=== PATIENT | male | born 1990 | race Two or more races ===

== ENCOUNTER 2019-11-10 03:56 | Emergency (ER) | payer SELFPAY ==
[2019-11-10 04:16] VITALS: BP 135/69; BMI 25.5
--- NOTE | 2019-11-10 04:27 | PDOC ---
*Physical Exam - Vital Signs Last Vital Signs Temp Pulse Resp BP Pulse Ox 101.9 F H 110 H 18 135/69 96 11/10/19 04:00 11/10/19 04:00 11/10/19 04:00 11/10/19 04:00 11/10/19 04:00 Medical Decision Making - Medical Decision Making 11/10/19 04:26 Patient seen by the advanced practice provider under my direct supervision. Ancillary testing reviewed as necessary. I agree with plan as outlined by the advanced practice provider. Discharge - Discharge Information Problems reviewed: Yes Clinical Impression/Diagnosis: Influenza-like illness Condition: Fair Disposition: HOME - Follow up/Referral Referrals: Tyler Rodgers MD [Staff Physician] - - Patient Discharge Instructions Additional Instructions: Rest, drink lots of fluids: Teas, water, soups Avoid contact with others until fevers and symptoms resolved Lots of handwashing and good hygiene Continue [id number] medications for symptomatic relief Tylenol or Motrin for fever and pain Continue all of antibiotics until completed Followup with private physician in one week for repeat urinalysis/reevaluation Return to emergency department for worsened symptoms, fevers, dehydration james Barraza muchos lquidos: Ts, agua, sopas Evite el contacto con otros hasta que las fiebres y los sntomas se resuelvan Un montn de lavado de tien y buena higiene Contine los medicamentos sin receta para el alivio sintomtico Tylenol o Motrin para la fiebre y el dolor Continuar todos los antibiticos hasta completarse Seguimiento con mdico privado en grant semana para repetir anlisis de orina / reevaluacin Volver al servicio de urgencias por sntomas empeorados, fiebres, deshidratacin - Post Discharge Activity
[2019-11-10] MEDS ORDERED: IBUPROFEN 600 MG TABLET (FP) PO ONE ×2 (04:30→04:37)
[2019-11-10] MEDS ORDERED: ACETAMINOPHEN 500 MG TABLET (FP) PO ONE (04:33)
--- NOTE | 2019-11-10 04:33 | PDOC ---
History of Present Illness - General Chief Complaint: Sore Throat Stated Complaint: COUGH, SORE THROAT Time Seen by Provider: 11/10/19 04:15 History Source: Patient Exam Limitations: No Limitations - History of Present Illness Initial Comments: 11/10/19 04:31 HISTORY OF PRESENT ILLNESS: 29-year-old male with 3 days of fevers, body aches, chills, cough, sore throat. Patient is unsure of sick contacts but has been taken Tylenol with increased hydration which is helped with the symptoms minimally. Reports his cough is a moist productive cough now has blood streaks in the sputum. No recent travel or sick contacts. PAST MEDICAL HISTORY: Denies past medical history SURGICAL HISTORY: Denies ALLERGIES: No known drug allergies REVIEW OF SYSTEMS General/Constitutional: +fever. Denies weakness, weight change. HEENT: Denies change in vision. Denies ear pain or discharge. +sore throat. Cardiovascular: Denies chest pain or shortness of breath. Respiratory: Moist productive cough. Denies wheezing, or hemoptysis. Gastrointestinal: Denies nausea, vomiting, diarrhea or constipation. Denies rectal bleeding. Genitourinary: Denies dysuria, frequency, or change in urination. Musculoskeletal: +myalgias. Denies neck or back pain. Skin and breasts: Denies rash or easy bruising. Neurologic: Denies headache, vertigo, loss of consciousness, or loss of sensation. Psychiatric: Denies depression or anxiety. Endocrine: Denies increased thirst. Denies abnormal weight change. Hematologic/Lymphatic: Denies anemia, easy bleeding, or history of blood clots. Allergic/Immunologic: Denies hives or skin allergy. Denies latex allergy. PHYSICAL EXAM General Appearance: Well-appearing, appropriately dressed. No apparent distress , no intoxication. HEENT: EOMI, PERRLA, normal voice, TMs retracted bilaterally. No conjunctival pallor. No photophobia, scleral icterus. Oropharynx erythematous without lesions or exudate. Cobblestoning noted in the posterior. No nasal discharge present. Neck: Supple. Trachea midline. No tenderness, rigidity, carotid bruit, stridor , or thyromegaly. Nontender anterior cervical lymphadenopathy present. Respiratory/Chest: Lungs CTAB. No shortness of breath, chest tenderness, respiratory distress, accessory muscle use. No crackles, rales, rhonchi, stridor , wheezing, dullness Cardiovascular: RRR. S1, S2. No JVD, murmur, bradycardia, tachycardia. Vascular Pulses: Dorsalis-Pedis (R): 2+, Dorsalis-Pedis (L): 2+ Gastrointestinal/Abdominal: Normal bowel sounds. Abdomen soft, non-distended. No tenderness or rebound tenderness. No organomegaly, pulsatile mass, guarding, hernia, hepatomegaly, splenomegaly. Musculoskeletal/Extremities: Normal inspection. FROM of all extremities, normal capillary refill. Pelvis Stable. No CVA tenderness. No tenderness to extremities, pedal edema, swelling, erythema or deformity. Integumentary: Appropriate color, dry, warm. No cyanosis, erythema, jaundice or rash Neurologic: representative phlebotomy services II-XII intact. Fully oriented, alert. Appropriate mood/affect. Motor strength 5/5. No appreciable EOM palsy, facial droop or sensory deficit. Past History - Past Medical History Allergies/Adverse Reactions: Allergies Allergy/AdvReac Type Severity Reaction Status Date / Time nut - unspecified Allergy Verified 11/10/19 04:16 shellfish derived Allergy Verified 11/10/19 04:16 - Psycho Social/Smoking Cessation Hx Smoking History: Never smoked *Physical Exam - Vital Signs Last Vital Signs Temp Pulse Resp BP Pulse Ox 101.9 F H 110 H 18 135/69 96 11/10/19 04:00 11/10/19 04:00 11/10/19 04:00 11/10/19 04:00 11/10/19 04:00 ED Treatment Course - RADIOLOGY Radiology Studies Ordered: Category Date Time Status CHEST PA & LAT [RAD] Stat Radiology 11/10/19 04:30 Ordered Medical Decision Making - Medical Decision Making 11/10/19 04:32 A/P: 29-year-old male with 3 days of influenza-like illness Given progressive worsening of the cough now with blood streaks in the sputum I will get a chest x-ray to rule out any bacterial superinfection on top of viral illness. Motrin 600 mg orally now Likely discharge 11/10/19 05:00 Chest x-ray as read by me: Angles sharp. Cardiac silhouette is within normal limits. Lung jones clear without infiltrate or consolidation present. I will discharge the patient home with supportive treatment of influenza-like illness. I discussed the physical exam findings, ancillary test results and final diagnoses with the patient. I answered all of the patient's questions. The patient was satisfied with the care received and felt comfortable with the discharge plan and treatment plan. The patient will call their primary care physician within 24 hours to arrange follow-up and will return to the Emergency Department with any new, persistent or worsening symptoms. Discharge - Discharge Information Problems reviewed: Yes Clinical Impression/Diagnosis: Influenza-like illness Condition: Fair Disposition: HOME - Admission No - Follow up/Referral Referrals: Tyler Rodgers MD [Staff Physician] - - Patient Discharge Instructions Additional Instructions: Rest, drink lots of fluids: Teas, water, soups Avoid contact with others until fevers and symptoms resolved Lots of handwashing and good hygiene Continue [id number] medications for symptomatic relief Tylenol or Motrin for fever and pain Continue all of antibiotics until completed Followup with private physician in one week for repeat urinalysis/reevaluation Return to emergency department for worsened symptoms, fevers, dehydration Tonyaejames muchos lquidos: Ts, agua, sopas Evite el contacto con otros hasta que las fiebres y los sntomas se resuelvan Un montn de lavado de tien y buena higiene Contine los medicamentos sin receta para el alivio sintomtico Tylenol o Motrin para la fiebre y el dolor Continuar todos los antibiticos hasta completarse Seguimiento con mdico privado en grant semana para repetir anlisis de orina / reevaluacin Volver al servicio de urgencias por sntomas empeorados, fiebres, deshidratacin - Post Discharge Activity Work/Back to School Note: Back to Work
[2019-11-10] MEDS ORDERED: ACETAMINOPHEN 500 MG TABLET (FP) ONE (04:37)
[2019-11-10 05:38] VITALS: PULSE 92; TEMP 100.7
== END 2019-11-10 05:38 | disposition home or self-care (01) ==
LOC: JER 03:56
DX: J11.1 Influenza due to unidentified influenza virus with other respiratory manifestations (principal); Z91.018 Allergy to other foods; Z91.013 Allergy to seafood
CPT/HCPCS: 71046-TC-FY; 99281-25